=== PATIENT | female | born 1990 | race Two or more races ===

== ENCOUNTER 2025-06-02 17:31 | Emergency (ER) | payer OTHER ==
[~2025-06-02] VITALS: Ht 170.2 cm; Wt 104.3 kg
[2025-06-02] MEDS ORDERED: AZITHROMYCIN500 MG (20:10)
[2025-06-02] MEDS ORDERED: [UNRECOGNIZED DRUG - MIXTURE] (20:10)
[2025-06-02] MEDS ORDERED: ALBUTEROL2.5 MG/3 M (20:10)
[2025-06-02] MEDS ORDERED: [UNRECOGNIZED DRUG - OTHER] (20:13)
[2025-06-02] MEDS ORDERED: 0.9 % SODIUM CHLORIDE 1,000 ML IV SCH (20:45)
[2025-06-02] MEDS ORDERED: ACETAMINOPHEN 500 MG GEL..CAP PO ONE ×2 (20:45→21:46)
[2025-06-02] MEDS ORDERED: FAMOTIDINE/PF 20 MG in 0.9 % SODIUM CHLORIDE 8 ML IV PUSH ONE (20:45)
[2025-06-02] MEDS ORDERED: ONDANSETRON HCL 4 MG in 0.9 % SODIUM CHLORIDE 50 ML IV ONE (20:45)
[2025-06-02] MEDS ORDERED: ONDANSETRON HCL 2 MG/ML VIAL ONE (21:45)
[2025-06-02] MEDS ORDERED: FAMOTIDINE/PF 20 MG/2 ML VIAL ONE (21:46)
[2025-06-02 23:59] LABS: BASO % 0.4 % (0.1-1.2); EOS # 0.18 (0.04-0.54); EOS % 1.9 % (0.7-7.0); LYMPH # 2.70 (1.18-3.74); LYMPH % 28.7 % (19.3-53.1); MEAN PLATELET VOLUME 10.80 fl (9.4-12.4); MONO # 0.71 (0.24-0.82); MONO % 7.5 % (4.7-12.5); NEUT # 5.77 (1.56-6.13); NEUT % 61.3 % (34.0-71.1); RED CELL DISTRIBUTION WIDTH 12.6 % (11.6-14.4)
[2025-06-03 00:26] LABS: INR 0.98
[2025-06-03 00:45] LABS: ALT/SGPT 22.0 U/L (12-78); AST/SGOT 19.0 U/L (15-37); BILIRUBIN TOTAL 0.39 mg/dL (0.3-1.2); BUN CREA RATIO 10.0 (7.0-25.0); CREATININE SERUM 0.58 mg/dL (0.55-1.02); GFR 117.63; GLOBULINA 4.1 G/DL (2.4-3.5); GLUCOSE FASTING 86.0 mg/dL (65-100); OSMOLALITY SERUM 276.0 MOSM/KG (275-295)
[2025-06-03 02:06] LABS: URINE APPEARANCE Clear; URINE BILIRRUBIN Negative (NEGATIVE); URINE BLOOD Large; URINE COLOR Yellow; URINE GLUCOSE Negative (NEGATIVE); URINE KETONE Trace (NEGATIVE); URINE LEUKOCYTE Small; URINE NITRATE Negative; URINE PROTEIN Trace (NEGATIVE); URINE UROBILINOGEN 0.2 E.U./dl
[2025-06-03 02:10] LABS: URINE BACTERIA 453.0 uL (0.0-1933); URINE CAST 3.11 uL (0.0-1.40); URINE EPITHELIAL CELLS 38.3 uL (0.0-38.8); URINE RBC 54.6 uL (0.0-20.8); URINE WBC 35.1 uL (0.0-23.2)
[2025-06-03 02:35] LABS: URINE MUCUS MODERATE
== END 2025-06-03 03:08 | disposition home or self-care (01) ==
LOC: ER 17:32
PROVIDERS: General Practice
DX: O20.8 Other hemorrhage in early pregnancy (principal); Z3A.09 9 weeks gestation of pregnancy; Z91.018 Allergy to other foods; Z88.3 Allergy status to other anti-infective agents